=== PATIENT | male | born 1980 | race Caucasian/White ===

== ENCOUNTER 2022-06-05 07:20 | Emergency (ER) | payer SELFPAY ==
[2022-06-05] VITALS (9 sets, daily range): BP systolic 117–150; BP diastolic 72–89; PULSE 55–94; RESP 16–18; TEMP 36.6; O2SAT 94–100; BMI 22.8
--- NOTE | 2022-06-05 07:37 | XRR_ITS ---
PROCEDURE INFORMATION: Exam: XR Abdomen Exam date and time: 06/05/2022 7:47 AM Age: 41 years old Clinical indication: Right-sided flank pain. TECHNIQUE: Imaging protocol: Radiologic exam of the abdomen. Views: Frontal supine view of the abdomen. 1 View. COMPARISON: No relevant prior studies available. FINDINGS: Gastrointestinal tract: There is moderate stool in the colon; query constipation. Bowel gas/stool partially obscures the renal shadows. An obstructive ureteral stone in the distal right ureter is better seen on follow-up CT. Intraperitoneal space: No gross free air. Bones/joints: No gross acute fracture. Other findings: No evidence of small-bowel obstruction. XR/XR KUB [id number] IMPRESSION: 1. Bowel gas/stool partially obscures the renal shadows. An obstructive ureteral stone in the distal right ureter is better seen on follow-up CT. 2. Moderate stool in the colon; query constipation. 3. Please see follow-up CT
[2022-06-05] MEDS: sodium chloride 0.9% 1,000 ML 999 ML IV ×2 (08:07→09:26)
[2022-06-05] MEDS: ondansetron 2 mg/ML SDV 2 mL 4 MG IVP (08:08)
[2022-06-05] MEDS: morphine 4 mg/mL SDV 1 mL 2 MG IVP ×3 (08:08→10:09)
[2022-06-05] MEDS: ketorolac 30 mg/mL INJ IVP (08:08)
--- NOTE | 2022-06-05 08:09 | CT_ITS ---
WS: [id number] CT ABDOMEN PELVIS TECHNIQUE: Noncontrast CT of the abdomen and pelvis with coronal and sagittal reformatted images. CLINICAL INFORMATION: right side flank pain COMPARISON: None. DLP: 359.[address] scans at [facility] use at least one of these dose optimization techniques: automated e xposure control; mA and/or kV adjustment per patient size (includes targeted exams where dose is matc hed to clinical indication); or iterative reconstruction. FINDINGS: Obstructing calculus in the RIGHT distal ureter proximal to the UVJ measuring approximately 3 mm. Mod erate RIGHT hydronephrosis. RIGHT ureterectasis. Inflammatory stranding and edema about the RIGHT kid julito and ureter. No hydronephrosis in the LEFT kidney. LEFT ureter is decompressed. Adrenal glands are normal. Normal appendix in the RIGHT lower quadrant. Lung bases are well aerated. Noncontrast liver is normal. Normal noncontrast spleen. Small esophageal hiatal hernia. Noncontrast pancreas is normal. Normal caliber abdominal aorta.Normal sigmoid colon. Tiny fat-containing umbilical hernia. CT/CT kidney stone [id number] IMPRESSION: 1. 3 mm calculus RIGHT distal ureter proximal to the UVJ. 2. Moderate RIGHT hydronephrosis with inflammatory stranding and edema. Inflam matory stranding and edema about the RIGHT ureter. 3. Normal appendix in RIGHT lower quadrant. 4. No hydronephrosis in the LEFT kidney. Notified BEVERLEY Arredondo at 06/05/2022 8:56 AM.
[2022-06-05 08:42] LABS: Basophils # 0.1 10^3/uL (0.0-0.1); Basophils % 0.9 %; Eosinophils # 0.1 10^3/uL (0.0-0.8); Eosinophils % 1.3 %; Hematocrit 44.1 % (42.0-52.0); Hemoglobin 14.6 g/dL (11.7-16.6); Lymphocytes # 1.4 10^3/uL (0.8-4.8); Lymphocytes % 16.8 %; Mean Corpuscular HGB Conc 33.1 g/dL (30.0-36.0); Mean Corpuscular Hemoglobin 30.9 pg (28.0-34.0); Mean Corpuscular Volume 93.4 fl (80-94); Monocytes # 0.5 10^3/uL (0.2-0.9); Neutrophils # 6.08 10^3/uL (1.8-7.7); Neutrophils % 74.6 %; Nucleated Red Blood Cells % 0 %; Platelet Count 165 10^3/cmm (130-400); Red Blood Count 4.72 10^6/uL (4.1-5.3); Red Cell Distribution Width 12.3 % (12.1-15.1); White Blood Count 8.2 10^3/uL (4.0-10.0)
--- NOTE | 2022-06-05 08:53 | ED_ITS ---
Documented by User: Betsy Mariee, CORPORATE TRAFFIC MANAGER-C 06/05/22 11:33 HPI - Abdominal Pain General: Chief Complaint: Abdominal Pain Stated Complaint: Pain near the Kidneys Time Seen by Provider: 06/05/22 07:32 History of Present Illness: Patient is in today for right-sided back and lower abdominal pain. He reports that last night when he went to bed he was having a little pain around his right kidney but did not say anything else about it. He reports that this morning at work he tried to urinate and he was having some burning down low and a difficult time starting a stream. He reports that he started having sharp pain in his right kidney and his right lower abdomen. He reports that he got really sweaty and nauseated. He denies fever. He has never had a kidney stone in the past. He denies blood in his urine. Associated Symptoms: Reports dysuria and nausea; Denies chills, fever(s) and vomiting Review of Systems Const: Denies: fever(s), chills or body aches Card: Denies: chest pain, palpitations or irregular heart rhythm Resp: Denies: dyspnea, productive cough or non-productive cough GI: Reports: abdominal pain and nausea; Denies: vomiting : Reports: flank pain, difficulty urinating, dysuria and urinary dribbling Musc: Reports: back pain Physical Exam Const: COMMON NORMALS: patient oriented x3 and alert OTHER: Patient in acute pain. Pacing, moving, unable to get comfortable Neck/C-Spine: COMMON NORMALS: no JVD Resp: COMMON NORMALS: normal respiratory effort, No use of accessory muscles and clear to auscultation bilaterally AUSCULTATION: clear to auscultation bilaterally Cardio: COMMON NORMALS: no JVD, regular rate, regular rhythm, S1 normal heart sound present, S2 normal heart sound present and No murmurs present (Cardio) RATE: regular rate RHYTHM: regular rhythm HEART SOUNDS: S1 normal heart sound present and S2 normal heart sound present GI: COMMON NORMALS: Normal to inspection, nondistended, normoactive bowel sounds present and Soft to palpation PALPATION: Yes Soft to palpation and Yes Tenderness to palpation present (GI) Details: RLQ : BLADDER/KIDNEY EXAM: Yes CVA tenderness Back/Pelvis: GENERAL BACK: Yes CVA tenderness Neuro: COMMON NORMALS: patient oriented x3 SENSORIUM/ORIENTATION: Yes alert Course Vital Signs: Vital signs: Vital Signs Temperature 97.8 F 06/05/22 07:33 Pulse Rate 65 06/05/22 12:31 Respiratory Rate 16 06/05/22 12:31 Blood Pressure 121/72 06/05/22 12:31 Pulse Oximetry 94 06/05/22 12:31 Oxygen Delivery Me thod 06/05/22 10:31 MDM - Abdominal Pain Medical Decision Making Differentials include renal stone, renal colic, appendicitis, pyelonephritis, UTI CBC within normal limits. CMP?unremarkable CT?radiologist called and advised of a 3 mm obstructing renal calculi in the right distal ureter proximal to the UV junction with moderate hydronephrosis, perinephric stranding and edema indicating an acute obstruction. Patient pain is better controlled after morphine and administration of the Percocet. Patient is able to urinate however his stream is difficult to start unless he relaxes. Patient is put on Flomax, Toradol for home use, Zofran and nitrofurantoin. Advised patient of conservative care measures at home. Discussed red flags for worsening and when to return to the ER. Referral was sent to case management for follow-up with Dr. Adams. UA dip negative for nitrates. I discussed the case with Dr. Amato. He agrees with plan of care and work-up as well as short-term referral to Dr. Adams in the outpatient setting. Dr. Amato provided outpatient pain control for patient. Lab Data 06/05/22 08:05 06/05/22 08:05 Labs/Radiology: Radiology Impressions KUB X-Ray 06/05/22 07:37 IMPRESSION: 1. Bowel gas/stool partially obscures the renal shadows. An obstructive ureteral stone in the distal right ureter is better seen on follow-up CT. 2. Moderate stool in the colon; query constipation. 3. Please see follow-up CT Abdomen/Pelvis CT 06/05/22 08:09 IMPRESSION: 1. 3 mm calculus RIGHT distal ureter proximal to the UVJ. 2. Moderate RIGHT hydronephrosis with inflammatory stranding and edema. Inflammatory stranding and edema about the RIGHT ureter. 3. Normal appendix in RIGHT lower quadrant. 4. No hydronephrosis in the LEFT kidney. Notified BEVERLEY Arredondo at 06/05/2022 8:56 AM. Laboratory Results WBC 8.2 10^3/uL (4.0-10.0) 06/05/22 08:05 RBC 4.72 10^6/uL (4.1-5.3) 06/05/22 08:05 Hgb 14.6 g/dL (11.7-16.6) 06/05/22 08:05 Hct 44.1 % (42.0-52.0) 06/05/22 08:05 MCV 93.4 fl (80-94) 06/05/22 08:05 MCH 30.9 pg (28.0-34.0) 06/05/22 08:05 MCHC 33.1 g/dL (30.0-36.0) 06/05/22 08:05 RDW 12.3 % (12.1-15.1) 06/05/22 08:05 Plt Count 165 10^3/cmm (130-400) 06/05/22 08:05 MPV 11.0 fL (7.4-10.4) H 06/05/22 08:05 Neut % (Auto) 74.6 % 06/05/22 08:05 Lymph % (Auto) 16.8 % 06/05/22 08:05 Traverse % (Auto) 6.0 % 06/05/22 08:05 Eos % (Auto) 1.3 % 06/05/22 08:05 Baso % (Auto) 0.9 % 06/05/22 08:05 Neut # (Auto) 6.08 10^3/uL (1.8-7.7) 06/05/22 08:05 Lymph # (Auto) 1.4 10^3/uL (0.8-4.8) 06/05/22 08:05 Traverse # (Auto) 0.5 10^3/uL (0.2-0.9) 06/05/22 08:05 Eos # (Auto) 0.1 10^3/uL (0.0-0.8) 06/05/22 08:05 Baso # (Auto) 0.1 10^3/uL (0.0-0.1) 06/05/22 08:05 Nucleated RBC % (auto) 0 % 06/05/22 08:05 Nucleated RBCs # 0.0 /100WBC 06/05/22 08:05 Sodium 139 mmol/L (136-145) 06/05/22 08:05 Potassium 3.7 mmol/L (3.5-5.1) 06/05/22 08:05 Chloride 101 mmol/L (98-107) 06/05/22 08:05 Carbon Dioxide 24 mmol/L (22-29) 06/05/22 08:05 Anion Gap 17.7 (5-19) 06/05/22 08:05 BUN 18 mg/dL (6-20) 06/05/22 08:05 Creatinine 1.0 mg/dL (0.7-1.2) 06/05/22 08:05 GFR Calculation 82.8 mL/min (90-130) L 06/05/22 08:05 Glucose 148 mg/dL (65-115) H 06/05/22 08:05 Calculated Osmolality 293 mOsm/kg (285-295) 06/05/22 08:05 Calcium 9.3 mg/dL (8.5-10.5) 06/05/22 08:05 Total Bilirubin 0.5 mg/dL (0.15-1.2) 06/05/22 08:05 AST 21 U/L (0-40) 06/05/22 08:05 ALT 24 U/L (0-41) 06/05/22 08:05 Alkaline Phosphatase 56 U/L (40-130) 06/05/22 08:05 Total Protein 7.6 g/dL (6.6-8.7) 06/05/22 08:05 Albumin 4.9 g/dL (3.5-5.2) 06/05/22 08:05 Globulin 2.7 g/dL (1.3-4.6) 06/05/22 08:05 Urine Color Yellow (Yellow) 06/05/22 08:58 Urine Appearance Hazy (CLEAR) A 06/05/22 08:58 Urine pH 6 (5-7) 06/05/22 08:58 Ur Specific [place] 1.020 (1.005-1.030) 06/05/22 08:58 Urine Protein Neg (Negative) 06/05/22 08:58 Urine Glucose (UA) Norm (Normal) 06/05/22 08:58 Urine Ketones Negative (Negative) 06/05/22 08:58 Urine Blood 3+ (Negative) H 06/05/22 08:58 Urine Nitrate Negative (Negative) 06/05/22 08:58 Urine Bilirubin Neg (Negative) 06/05/22 08:58 Urine Urobilinogen Norm mg/dL (Negative) 06/05/22 08:58 Ur Leukocyte Esterase Negative (Negative) 06/05/22 08:58 Urine RBC 25-40 /hpf (0-2) H 06/05/22 08:58 Urine WBC 0-4 /hpf (0-5) H 06/05/22 08:58 Ur Squamous Epith Cells 0-4 /hpf (0-5) H 06/05/22 08:58 Amorphous Sediment Not Reportable 06/05/22 08:58 Urine Bacteria 2+ /hpf (NONE) H 06/05/22 08:58 Urine Mucus 1+ /hpf 06/05/22 08:58 Discharge Plan Discharge Patient Disposition: Home Clinical Impression: Right renal stone, Hydronephrosis of right kidney Condition: Stable Prescriptions: New ketorolac 10 mg tablet 10 mg PO Q6H PRN (Reason: pain) Qty: 20 0RF Flomax 0.4 mg capsule 0.4 mg PO DAILY Qty: 7 0RF ondansetron 4 mg tablet,disintegrating 4 mg PO Q8H PRN (Reason: nausea and vomiting) 3 Days Qty: 9 0RF nitrofurantoin macrocrystal 100 mg capsule 100 mg PO BID 5 Days Qty: 10 0RF Rx Instructions: must administer with a meal/food Discharge Orders: Discharge ED (Routine); Ordered 06/05/22 Ordered By: Betsy Mariee Discharge Diet: Advance as tolerated Discharge Activity: Increase activity as tolerated Patient Instructions: Kidney Stones (ED) Activity Restrictions/Additional Instructions: Take Toradol as directed as needed for pain. Take Flomax every day. You already had your dose of Flomax today. Strain your urine until the stone passes. Make sure that you are staying well-hydrated. Follow-up with urology. Return to the ER for any new or worsening symptoms including, but not limited to, worsening pain, development of fever or chills, vomiting, inability to urinate. Coding Level of Care Code ED Windows Mobile Developer for Chg Fwd Exam Detailed Documented by User: Blake Amato DO 06/05/22 18:15 HPI - Abdominal Pain General: Chief Complaint: Abdominal Pain Stated Complaint: Pain near the Kidneys Time Seen by Provider: 06/05/22 07:32 Course Vital Signs: Vital signs: Vital Signs Temperature 97.8 F 06/05/22 07:33 Pulse Rate 65 06/05/22 12:31 Respiratory Rate 16 06/05/22 12:31 Blood Pressure 121/72 06/05/22 12:31 Pulse Oximetry 94 06/05/22 12:31 Oxygen Delivery Me thod 06/05/22 10:31 MDM - Abdominal Pain Medical Decision Making Differentials include renal stone, renal colic, appendicitis, pyelonephritis, UTI CBC within normal limits. CMP?unremarkable CT?radiologist called and advised of a 3 mm obstructing renal calculi in the right distal ureter proximal to the UV junction with moderate hydronephrosis, perinephric stranding and edema indicating an acute obstruction. Patient pain is better controlled after morphine and administration of the Percocet. Patient is able to urinate however his stream is difficult to start unless he relaxes. Patient is put on Flomax, Toradol for home use, Zofran and nitrofurantoin. Advised patient of conservative care measures at home. Discussed red flags for worsening and when to return to the ER. Referral was sent to case management for follow-up with Dr. Adams. UA dip negative for nitrates. I discussed the case with Dr. Amato. He agrees with plan of care and work-up as well as short-term referral to Dr. Adams in the outpatient setting. Dr. Amato provided outpatient pain control for patient. Chart reviewed and patient discussed with midlevel. Agree with assessment and plan. Lab Data 06/05/22 08:05 06/05/22 08:05 Labs/Radiology: Radiology Impressions KUB X-Ray 06/05/22 07:37 IMPRESSION: 1. Bowel gas/stool partially obscures the renal shadows. An obstructive ureteral stone in the distal right ureter is better seen on follow-up CT. 2. Moderate stool in the colon; query constipation. 3. Please see follow-up CT Abdomen/Pelvis CT 06/05/22 08:09 IMPRESSION: 1. 3 mm calculus RIGHT distal ureter proximal to the UVJ. 2. Moderate RIGHT hydronephrosis with inflammatory stranding and edema. Inflammatory stranding and edema about the RIGHT ureter. 3. Normal appendix in RIGHT lower quadrant. 4. No hydronephrosis in the LEFT kidney. Notified Betsy Kodi, CORPORATE TRAFFIC MANAGER-C at 06/05/2022 8:56 AM. Laboratory Results WBC 8.2 10^3/uL (4.0-10.0) 06/05/22 08:05 RBC 4.72 10^6/uL (4.1-5.3) 06/05/22 08:05 Hgb 14.6 g/dL (11.7-16.6) 06/05/22 08:05 Hct 44.1 % (42.0-52.0) 06/05/22 08:05 MCV 93.4 fl (80-94) 06/05/22 08:05 MCH 30.9 pg (28.0-34.0) 06/05/22 08:05 MCHC 33.1 g/dL (30.0-36.0) 06/05/22 08:05 RDW 12.3 % (12.1-15.1) 06/05/22 08:05 Plt Count 165 10^3/cmm (130-400) 06/05/22 08:05 MPV 11.0 fL (7.4-10.4) H 06/05/22 08:05 Neut % (Auto) 74.6 % 06/05/22 08:05 Lymph % (Auto) 16.8 % 06/05/22 08:05 Traverse % (Auto) 6.0 % 06/05/22 08:05 Eos % (Auto) 1.3 % 06/05/22 08:05 Baso % (Auto) 0.9 % 06/05/22 08:05 Neut # (Auto) 6.08 10^3/uL (1.8-7.7) 06/05/22 08:05 Lymph # (Auto) 1.4 10^3/uL (0.8-4.8) 06/05/22 08:05 Traverse # (Auto) 0.5 10^3/uL (0.2-0.9) 06/05/22 08:05 Eos # (Auto) 0.1 10^3/uL (0.0-0.8) 06/05/22 08:05 Baso # (Auto) 0.1 10^3/uL (0.0-0.1) 06/05/22 08:05 Nucleated RBC % (auto) 0 % 06/05/22 08:05 Nucleated RBCs # 0.0 /100WBC 06/05/22 08:05 Sodium 139 mmol/L (136-145) 06/05/22 08:05 Potassium 3.7 mmol/L (3.5-5.1) 06/05/22 08:05 Chloride 101 mmol/L (98-107) 06/05/22 08:05 Carbon Dioxide 24 mmol/L (22-29) 06/05/22 08:05 Anion Gap 17.7 (5-19) 06/05/22 08:05 BUN 18 mg/dL (6-20) 06/05/22 08:05 Creatinine 1.0 mg/dL (0.7-1.2) 06/05/22 08:05 GFR Calculation 82.8 mL/min (90-130) L 06/05/22 08:05 Glucose 148 mg/dL (65-115) H 06/05/22 08:05 Calculated Osmolality 293 mOsm/kg (285-295) 06/05/22 08:05 Calcium 9.3 mg/dL (8.5-10.5) 06/05/22 08:05 Total Bilirubin 0.5 mg/dL (0.15-1.2) 06/05/22 08:05 AST 21 U/L (0-40) 06/05/22 08:05 ALT 24 U/L (0-41) 06/05/22 08:05 Alkaline Phosphatase 56 U/L (40-130) 06/05/22 08:05 Total Protein 7.6 g/dL (6.6-8.7) 06/05/22 08:05 Albumin 4.9 g/dL (3.5-5.2) 06/05/22 08:05 Globulin 2.7 g/dL (1.3-4.6) 06/05/22 08:05 Urine Color Yellow (Yellow) 06/05/22 08:58 Urine Appearance Hazy (CLEAR) A 06/05/22 08:58 Urine pH 6 (5-7) 06/05/22 08:58 Ur Specific [place] 1.020 (1.005-1.030) 06/05/22 08:58 Urine Protein Neg (Negative) 06/05/22 08:58 Urine Glucose (UA) Norm (Normal) 06/05/22 08:58 Urine Ketones Negative (Negative) 06/05/22 08:58 Urine Blood 3+ (Negative) H 06/05/22 08:58 Urine Nitrate Negative (Negative) 06/05/22 08:58 Urine Bilirubin Neg (Negative) 06/05/22 08:58 Urine Urobilinogen Norm mg/dL (Negative) 06/05/22 08:58 Ur Leukocyte Esterase Negative (Negative) 06/05/22 08:58 Urine RBC 25-40 /hpf (0-2) H 06/05/22 08:58 Urine WBC 0-4 /hpf (0-5) H 06/05/22 08:58 Ur Squamous Epith Cells 0-4 /hpf (0-5) H 06/05/22 08:58 Amorphous Sediment Not Reportable 06/05/22 08:58 Urine Bacteria 2+ /hpf (NONE) H 06/05/22 08:58 Urine Mucus 1+ /hpf 06/05/22 08:58 Discharge Plan Discharge Patient Disposition: Home Clinical Impression: Right renal stone, Hydronephrosis of right kidney Condition: Stable Prescriptions: New ketorolac 10 mg tablet 10 mg PO Q6H PRN (Reason: pain) Qty: 20 0RF Flomax 0.4 mg capsule 0.4 mg PO DAILY Qty: 7 0RF ondansetron 4 mg tablet,disintegrating 4 mg PO Q8H PRN (Reason: nausea and vomiting) 3 Days Qty: 9 0RF nitrofurantoin macrocrystal 100 mg capsule 100 mg PO BID 5 Days Qty: 10 0RF Rx Instructions: must administer with a meal/food Discharge Orders: Discharge ED (Routine); Ordered 06/05/22 Ordered By: Betsy Mariee Discharge Diet: Advance as tolerated Discharge Activity: Increase activity as tolerated Patient Instructions: Kidney Stones (ED) Activity Restrictions/Additional Instructions: Take Toradol as directed as needed for pain. Take Flomax every day. You already had your dose of Flomax today. Strain your urine until the stone passes. Make sure that you are staying well-hydrated. Follow-up with urology. Return to the ER for any new or worsening symptoms including, but not limited to, worsening pain, development of fever or chills, vomiting, inability to urinate. Coding Level of Care Code ED Windows Mobile Developer for Roberta Fweduard Exam Detailed
[2022-06-05 08:57] LABS: Alanine Aminotransferase 24 U/L (0-41); Albumin Level 4.9 g/dL (3.5-5.2); Alkaline Phosphatase 56 U/L (40-130); Anion Gap 17.7 (5-19); Aspartate Amino Transferase 21 U/L (0-40); Blood Urea Nitrogen 18 mg/dL (6-20); Calcium 9.3 mg/dL (8.5-10.5); Carbon Dioxide 24 mmol/L (22-29); Chloride 101 mmol/L (98-107); Globulin 2.7 g/dL (1.3-4.6); Glomerular Filtration Rate 82.8 mL/min (90-130); Glucose 148 mg/dL (65-115); Osmolality Calculated 293 mOsm/kg (285-295); Potassium 3.7 mmol/L (3.5-5.1); Sodium 139 mmol/L (136-145); Total Bilirubin 0.5 mg/dL (0.15-1.2); Total Protein 7.6 g/dL (6.6-8.7)
--- NOTE | 2022-06-05 09:11 | PC.PHAR ---
PT AND PTS FAMILY STATES THE PT HASNT TAKEN MEDICATIONS FOR AT LEAST 10 YEARS PT STATES DOESNT TAKE OTC MEDS EITHER
[2022-06-05] MEDS: tamsulosin 0.4 mg Capsule PO (09:28)
[2022-06-05 09:30] LABS: Add Urine Microscopic? YES; Bilirubin Urine Neg (Negative); Blood Urine 3+ (Negative); Glucose Urine UA Norm (Normal); Ketones Urine Negative (Negative); Leukocyte Esterase Urine Negative (Negative); Nitrate Urine Negative (Negative); Protein Urine Neg (Negative); RBC Urine 25-40 /hpf (0-2); Urine Appearance Hazy (CLEAR); Urine Color Yellow (Yellow); Urobilinogen Urine Norm (Negative); pH Urine 6 (5-7)
[2022-06-05 09:31] LABS: Add Urine Culture? No; Bacteria Urine 2+ /hpf; Mucus Urine 1+ /hpf; Squamous Epithelial Cell Urine 0-4 /hpf (0-5); WBC Urine 0-4 /hpf (0-5)
[2022-06-05] MEDS: oxyCODONE-APAP 5-325 mg Tablet 1 TAB PO ×2 (09:36→12:24)
--- NOTE | 2022-06-05 12:15 | DCPLANNER ---
Addendum entered by Renata Garcia 06/13/22 14:44: Patient had a follow up appointment scheduled with urology - patient did attend appointment Addendum entered by Renata Garcia 06/05/22 14:29: Patient has a follow up appointment scheduled for Thursday, June 09, 2022 at 12:[address] Adams at urology. Clinic will call patient with appointment information. Original Note: manager mac had message to schedule a follow up appointment for patient with urology. manager mac sent patients information to the front office staff at urology. Patients information will be printed and reviewed. Clinic will call patient with appointment information.
== END 2022-06-05 12:33 | disposition home or self-care (01) ==
PROVIDERS: Emergency Provider Nurse Practitioner Family
DX: N13.2 Hydronephrosis with renal and ureteral calculous obstruction (principal)
CPT/HCPCS: 74018; 74176; 80053; 81001; 85025; 96361; 96374; 96375; 96376; 99285; J1885; J2270; J2405; J7030

== ENCOUNTER 2022-06-06 11:46 | Outpatient (CLI) | payer SELFPAY ==
--- NOTE | 2022-06-06 12:00 | XR_ITS ---
WS: [id number] XR KUB [id number] REASON FOR EXAM: STONES FINDINGS: No intrarenal calculi. The distal right ureteral calculus demonstrated on the CT scan of 06/05/2022 is not identifiable. No other urinary tract calculi. No other significant abdominal abnormality. XR/XR KUB [id number] IMPRESSION: No urinary tract calculi identified as above.
== END 2022-06-06 11:47 | disposition home or self-care (01) ==
PROVIDERS: Visit Provider Urology
DX: N20.9 Urinary calculus, unspecified (principal)
CPT/HCPCS: 74018

== ENCOUNTER → 2022-06-12 10:24 | Outpatient (BNVA) | payer SELFPAY | PROVIDERS: Visit Provider Urology | DX: N20.1 Calculus of ureter (principal) | CPT/HCPCS: 81003 ==